=== PATIENT | male | born 1945 ===

== ENCOUNTER 2018-10-31 06:23 | Day surgery (SDC) | payer OTHER ==
--- NOTE | 2018-10-24 09:43 | HP ---
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 HISTORY OF PRESENT ILLNESS: This is a 73-year-old male who complains of pain in his left middle finger with an associated mass on the dorsal aspect of the finger. The patient reports he noticed the mass several months ago and there was also a deformity of his fingernail. Since then, the deformity has resolved and the mass has migrated proximally. He had a similar problem on the right index finger and he poked to the mass and eventually it went away and has not recurred. The mass on his left long finger has persisted. He denies any numbness or tingling. 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 He has consented to proceed with surgical excision of the mass. PAST MEDICAL HISTORY: 1. History of hepatitis B in the 1970s. 2. Various orthopedic injuries. 3. History of upper extremity DVTs in 2014. PAST SURGICAL HISTORY: 1. Right leg/hip open reduction and internal fixation in 2014. 2. ORIF of the right arm in 1978, subsequent surgery to remove hardware. 3. Clavicle ORIF and subsequent surgery to remove the hardware. MEDICATIONS: None. ALLERGIES: No known drug allergies. FAMILY MEDICAL HISTORY: Hypertension. 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 He is a former smoker. He quit back in the late 60s early 70s. Prior to that, he smoked a pack per day for approximately 10 years. He currently smokes marijuana on occasion. He does not drink alcohol. REVIEW OF SYSTEMS: Negative for general, cephalic, cardiovascular, respiratory , GI, other musculoskeletal, integumentary, endocrine, neurologic and hematologic symptoms. Infectious disease: Negative for MRSA, hepatitis C, HIV. There is a history of hepatitis B. PHYSICAL EXAMINATION GENERAL: Well-developed, well-nourished, 73-year-old male in on acute distress. VITAL SIGNS: Height 5 feet 8-1/2 inches, weight 159 pounds. Pulse rate 72, blood pressure 120/70. HEENT: Normocephalic, atraumatic. Pupils are equal, round, and reactive to light and accommodation. Extraocular movements are intact. NECK: Supple. No palpable lymph nodes. Throat is clear. PULMONARY: Lungs are clear to auscultation bilaterally. No wheezes, rales, or rhonchi. CARDIOVASCULAR: Regular rate and rhythm. S1, S2. No murmurs, rubs, or gallops. No edema. ABDOMEN: Positive bowel sounds, soft, and nontender. MUSCULOSKELETAL: On exam of the left middle finger, he has a large cystic mass on the dorsal aspect. It measures about 1 x 3 cm overlying the middle phalanx. There is no deformity of his fingernail. He can fully flex and extend the finger. Skin is intact. Neurovascular function is intact. NEUROLOGIC: Alert and oriented x3. Cranial nerves II through XII are intact. Sensation is intact to light touch. 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 IMPRESSION: Left middle finger arthritis with ganglion cyst. PLAN: The patient is scheduled to undergo an excision mass of left long finger with Dr. Maier on 10/31/18. Return to the office 10 days postop for followup and suture removal. A prescription for tramadol was e-scribed to the patient's pharmacy for postoperative pain management. ALFREDITO OLIVARES [id number]/[facility] #: [id number] LAZARUS
[2018-10-31] MEDS ORDERED: Lidocaine 1% INJ* 10 MG/ML 30 ML SDV ONE (07:21)
--- NOTE | 2018-10-31 08:32 | OP ---
DATE OF OPERATION: 10/31/18 [facility] DATE OF : 45 SURGEON: Spring Maier MD EVP GENERAL COUNSEL: ALFREDITO Bailey ANESTHESIA: Local. PRE-OP DIAGNOSIS: Left middle finger mass. POST-OP DIAGNOSIS: Left middle finger mass. OPERATIVE PROCEDURE: Removal of left middle finger mass. ESTIMATED BLOOD LOSS: Zero. TOURNIQUET TIME: Approximately 15 minutes. INDICATIONS FOR PROCEDURE: Hao is a 73-year-old man who has a bothersome mass on the dorsal aspect of his left middle finger between the DIP and PIP joints. He presents for removal. DESCRIPTION OF PROCEDURE: The patient was brought to the operating room, was given a digital block anesthetic with 10 cc of 1% plain lidocaine. The skin of his left hand and forearm was prepped and draped in the usual sterile fashion. The middle finger was exsanguinated with a tourniquet which was left in place during the duration of the procedure. A longitudinal incision was made centered over the mass and we dissected bluntly through the subcutaneous tissue. The Bovie was used to cauterize the blood vessels. The mass appeared to be emanating from the extensor tendon. It was removed in its entirety and sent for pathology. The wound was irrigated and the skin edges were reapproximated with 4-0 nylon suture. The wound was dressed with Xeroform, 4x4' s, Webril, and Coban. The patient tolerated the procedure well and was brought to the recovery room in good condition. [id number]/[facility] #: [id number] MTDD
[2018-10-31 08:38] VITALS: BP 120/62
== END 2018-10-31 08:20 | disposition home or self-care (01) ==
LOC: OREAST 06:23
PROVIDERS: ATTEND Orthopaedic Surgery
DX: M67.442 Ganglion, left hand (principal); Z87.891 Personal history of nicotine dependence; Z86.718 Personal history of other venous thrombosis and embolism
CPT/HCPCS: 88304